=== PATIENT | female | born 1980 | race Caucasian/White ===

== ENCOUNTER → 2017-09-04 | Outpatient (CLI) | payer MEDICAID ==
[~2017-09-04] MED LIST: AMOX875T PO; GADOBUTROL 10 MMOL/10 ML PFS ONE; IBUP-1222 PO; IBUP-1484 PO; METH750T2 PO; NICO-485 TD; None per pt; OXYC-302 PO; OXYC-307 PO; PERCOCET PO; POLY17PO5 PO; SULF1TAB24 PO; ZOLP10TA PO
== END | disposition home or self-care (01) ==
LOC: CFH 09:18
PROVIDERS: ATTEND Registered Nurse
DX: M47.896 Other spondylosis, lumbar region (principal); M47.897 Other spondylosis, lumbosacral region; M43.16 Spondylolisthesis, lumbar region; M48.061 Spinal stenosis, lumbar region without neurogenic claudication; M48.07 Spinal stenosis, lumbosacral region; M51.36 Other intervertebral disc degeneration, lumbar region; M51.26 Other intervertebral disc displacement, lumbar region
CPT/HCPCS: 72110; 72158; A9585

== ENCOUNTER 2020-03-18 07:11 | Outpatient (CLI) | payer MEDICAID, OTHER ==
[~2020-03-18 07:11] MED LIST changes: -GADOBUTROL 10 MMOL/10 ML PFS ONE; -IBUP-1484 PO; +IBUP-1902 PO
== END 2020-03-18 23:59 | disposition home or self-care (01) ==
LOC: CFH 07:11
PROVIDERS: ATTEND Genetic Counselor, MS
DX: K76.0 Fatty (change of) liver, not elsewhere classified (principal)
CPT/HCPCS: 76700